=== PATIENT | female | born 1985 | race Caucasian/White ===

== ENCOUNTER 2023-05-08 21:32 | Outpatient (REF) | payer OTHER, SELFPAY ==
[2023-05-12 14:10] LABS: Age Gdln ACOG Testing Note (.); HPV Aptima Negative (Negative); IGP, Aptima HPV, rfx 16/18,45 Note (.)
== END 2023-05-08 21:33 | disposition home or self-care (01) ==
LOC: LAB 21:32
PROVIDERS: PCP Internal Medicine; Visit Provider Physician Assistant
DX: Z01.419 Encounter for gynecological examination (general) (routine) without abnormal findings (principal)
CPT/HCPCS: 87624; G0145

== ENCOUNTER 2023-09-21 09:29 | Outpatient (OUT) | payer OTHER, SELFPAY ==
--- NOTE | 2023-09-21 | XR_ITS ---
The [address] [address] Patient Name: JAYME GAMBINO MRN: [id number] date: 1985 Sex: F Assigned Patient Location: Current Patient Location: Accession/Order Number: [id number] Exam Date: 09/21/2023 09:35 Report Date: 09/21/2023 10:20 At the request of: DOLORES CALVILLO Procedure: XR foot CATRACHITA min 3V EXAMINATION: XR foot CATRACHITA min 3V HISTORY: BILATERAL FOOT PAIN COMPARISON: No relevant comparison available. FINDINGS: RIGHT FINDINGS: BONES: Normal. No significant arthropathy or acute abnormality. Minimal enthesopathic spurring plantar calcaneus SOFT TISSUES: Negative. No visible soft tissue swelling. OTHER: Negative. LEFT FINDINGS: BONES: Normal. No significant arthropathy or acute abnormality. Minimal enthesopathic spurring Achilles insertion of the calcaneus SOFT TISSUES: Negative. No visible soft tissue swelling. OTHER: Negative. XR/XR foot CATRACHITA min 3V IMPRESSION: RIGHT CONCLUSION: Mild calcaneal enthesopathy LEFT CONCLUSION: Mild calcaneal enthesopathy Electronically authenticated by: BEATRIZ GREENE Date: 09/21/2023 10:20
== END 2023-09-21 09:30 | disposition home or self-care (01) ==
LOC: EC 09:30
PROVIDERS: PCP Internal Medicine; Visit Provider Physician Assistant
DX: M79.671 Pain in right foot (principal); M79.672 Pain in left foot; M77.32 Calcaneal spur, left foot; M77.31 Calcaneal spur, right foot
CPT/HCPCS: 73630